=== PATIENT | male | born 1955 | race Caucasian/White ===

== ENCOUNTER 2018-01-05 14:24 | Inpatient (IN) | payer BC, OTHER ==
[~2018-01-05] VITALS: Ht 175.3 cm; Wt 74.8 kg
[~2018-01-05 14:24] MED LIST: CHOLESTEROL MED; PERCOCET 5-3251 EACH PO; TOPROL
[2018-01-05 14:26] VITALS: BP 182/75
[2018-01-05] MEDS ORDERED: CRESTOR10 MG PO (14:31)
[2018-01-05] MEDS ORDERED: NORVASC5 MG PO (14:32)
[2018-01-05] MEDS ORDERED: PRINIVIL20 MG PO (14:32)
[2018-01-05] MEDS ORDERED: ASPIRIN325 PO (14:33)
[2018-01-05] MEDS ORDERED: DOXYCYCLINE 10100 MG PO (14:33)
[2018-01-05] MEDS ORDERED: PROAIR INH (14:34)
[2018-01-05 15:01] LABS: ABSOLUTE BASOPHILS 0.1 thou/uL (0.0-0.2); ABSOLUTE EOSINOPHILS 0.2 thou/uL (0.0-0.7); ABSOLUTE LYMPHOCYTES 2.6 thou/uL (0.8-5.3); ABSOLUTE MONOCYTES 0.9 thou/uL (0.0-1.2); ABSOLUTE NEUTROPHILS 4.7 thou/uL (1.6-8.1); BASOPHILS 1.1 %; EOSINOPHILS 2.1 %; HEMATOCRIT 42.9 % (42.0-52.0); HEMOGLOBIN 14.6 gm/dL (14.0-18.0); MCH 30.5 pg (26.0-34.0); MCHC 33.9 g/dL (28.0-37.0); MCV 89.9 fL (80.0-100.0); MONOCYTES 10.9 %; MPV 6.6 fl. (7.2-11.1); NUCLEATED RBCS 0 /100WBC; PLATELET COUNT* 376 thou/uL (150-400); POLYS 54.9 %; RBC 4.78 mil/uL (4.50-6.00); RDW-CV 14.3 % (10.5-14.5); WBC 8.5 thou/uL (4.0-11.0)
[2018-01-05 15:29] LABS: ANION GAP 8 mmol/L (7-16); BUN 16 mg/dL (7-18); CALCIUM 9.8 mg/dL (8.5-10.1); CHLORIDE 102 mmol/L (98-107); CO2 26 mmol/L (21-32); CREATININE 0.7 mg/dL (0.6-1.3); GLUCOSE 107 mg/dL (70-99); POTASSIUM 4.1 mmol/L (3.5-5.1); SODIUM 136 mmol/L (136-145)
[2018-01-05 15:34] LABS: ALBUMIN 3.7 g/dL (3.4-5.0); ALKALINE PHOSPHATASE 140 U/L (46-116); LIPASE 77 U/L (73-393); NT-PRO BRAIN NAT PEPTIDE 19 pg/mL (<300); SGOT 11 U/L (15-37); SGPT 20 U/L (30-65); TOTAL BILIRUBIN 0.3 mg/dL (<0.1-1.0); TOTAL PROTEIN 7.5 g/dL (6.4-8.2); TROPONIN-I LEVEL <0.06 ng/mL (<0.06)
--- NOTE | 2018-01-05 16:44 | EKG ---
[place] [address] ELECTROCARDIOGRAM REPORT Name: KATRIN COUGHLIN Room: [facility]#: [id number] Admission: 01/05/18 Attend Phys: Discharge: Date of : 55 Report #: [id number] THIS REPORT FOR: //name// [facility] ED Test Date: 2018-01-05 Test Time: 14:28:29 Pat Name: KATRIN COUGHLIN Department: Room: Gender: M Cardiology Technician: JOSE : 1955 Requested By: Anshul Castano Order Number: [id number] MD: Jayedn Ortiz Measurements Intervals [place] Rate: 79 P: 72 UT: 162 QRS: 40 QRSD: 89 T: 62 QT: 359 QTc: 412 Interpretive Statements Sinus rhythm Left atrial enlargement Probable anteroseptal infarct, old Minimal ST depression, inferior leads Baseline wander in lead(s) I,III,aVL No previous ECG available for comparison Electronically Signed On 01-05-2018 16:43:39 GATE KEEPER by Jayden Ortiz [email or web address] <ELECTRONICALLY SIGNED> By: Jayden Ortiz MD, [facility] 01/05/18 1643 1428 1428 Jayden Ortiz MD, [facility] /EPI
[2018-01-05] MEDS ORDERED: LEVAQUIN 750 M750 MG PO (16:58)
[2018-01-05 18:19] VITALS: BP 172/62
[2018-01-05 18:53] VITALS: BP 161/70
[2018-01-05 20:00] VITALS: BP 161/69
[2018-01-06] VITALS: BP 124/66
[2018-01-06 04:00] VITALS: BP 127/62
[2018-01-06 07:45] VITALS: BP 135/71
[2018-01-06 11:30] VITALS: BP 126/62
--- NOTE | 2018-01-06 13:45 | EKG ---
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 : 1955 Requested By: Anshul Castano Order Number: [id number] MD: Jayden Ortiz Measurements Intervals [place] Rate: 61 P: 70 VT: 167 QRS: 36 QRSD: 97 T: 52 QT: 408 QTc: 411 Interpretive Statements Sinus rhythm Probable left atrial enlargement Anterior infarct, old Compared to ECG 01/05/2018 14:28:29 Myocardial infarct finding still present Electronically Signed On 01-06-2018 13:45:42 DIRECTOR PHYSICAL THERAPY by Jayden Ortiz [email or web address] <ELECTRONICALLY SIGNED> By: Jayden Ortiz MD, [facility] 01/06/18 1345 1718 1718 Jayden Ortiz MD, [facility] /EPI
[2018-01-06 15:50] VITALS: BP 124/64
[2018-01-06 20:00] VITALS: BP 141/66; BP 142/56
[2018-01-07 04:00] VITALS: BP 128/77
[2018-01-07 05:58] LABS: ABSOLUTE LYMPHOCYTES 0.8 thou/uL (0.8-5.3); ABSOLUTE MONOCYTES 0.2 thou/uL (0.0-1.2); ABSOLUTE NEUTROPHILS 5.2 thou/uL (1.6-8.1); BASOPHILS 0.3 %; EOSINOPHILS 0.1 %; HEMATOCRIT 44.2 % (42.0-52.0); HEMOGLOBIN 14.9 gm/dL (14.0-18.0); LYMPHOCYTES 13.5 %; MCH 30.3 pg (26.0-34.0); MCHC 33.6 g/dL (28.0-37.0); MCV 90.1 fL (80.0-100.0); MONOCYTES 2.8 %; MPV 6.9 fl. (7.2-11.1); NUCLEATED RBCS 0 /100WBC; PLATELET COUNT* 392 thou/uL (150-400); POLYS 83.3 %; RBC 4.91 mil/uL (4.50-6.00); RDW-CV 13.9 % (10.5-14.5); WBC 6.2 thou/uL (4.0-11.0)
[2018-01-07 06:20] LABS: CALCIUM 10.1 mg/dL (8.5-10.1); CREATININE 0.9 mg/dL (0.6-1.3); MAGNESIUM 2.3 mg/dL (1.8-2.4); POTASSIUM 4.7 mmol/L (3.5-5.1)
[2018-01-07 08:00] VITALS: BP 146/71
--- NOTE | 2018-01-07 08:22 | CON ---
[address] [address] CONSULTATION Name: KATRIN COUGHLIN Room: [address] IN .R.#: [id number] Admission: 01/05/18 Attend Phys: Shiva Ryan Discharge: Date of : 55 Report #: [id number] THIS REPORT FOR: //name// CC: Nick Coon INDICATION: Chest pain in patient with pneumonia and possible lung mass. HISTORY OF PRESENT ILLNESS: The patient is a very pleasant 62-year-old gentleman who denies any history of myocardial infarction. He has carotid vascular disease that is nonocclusive. He has risk factors including tobacco use and dyslipidemia. He presented to the hospital with chest discomfort and was found to have pneumonia that appears to be a postobstructive pneumonia. He is not having fevers. He does have a cough that is nonproductive at this point in time. He has some chest discomfort with cough that is atypical for angina. EKG shows no significant ST or T-wave abnormality. Troponins are unremarkable. PAST MEDICAL HISTORY: 1. Pneumonia. 2. Hyperlipidemia. 3. Hypertension. 4. Chronic tobacco use. PAST SURGICAL HISTORY: None. FAMILY HISTORY: Noncontributory. SOCIAL HISTORY: The patient is . He smokes a pack and half cigarettes daily. ALLERGIES: None. CURRENT MEDICATIONS: Amlodipine 5 mg daily, aspirin 325 mg daily, lisinopril 40 mg daily, Crestor 10 mg at bedtime, ProAir inhaler p.r.n. REVIEW OF SYSTEMS: A 14-point review of systems is positive for cough, pneumonia, chest discomfort, dyspnea, seasonal allergies and dentures, otherwise unremarkable. PHYSICAL EXAMINATION: VITAL SIGNS: Blood pressure 126/62, pulse 63 and regular. GENERAL: This is a pleasant gentleman who is in no distress. Mood and affect appropriate. HEENT: Extraocular muscles intact. Mucous membranes are moist. NECK: Shows no jugular venous distention. There are [place] [address] CONSULTATION Name: KATRIN COUGHLIN Room: [address]#: [id number] Admission: 01/05/18 Attend Phys: Shiva Ryan Discharge: Date of : 55 Report #: [id number] CHEST: Reveals diminished breath sounds with prolonged expiration. I do not appreciate wheezes. CARDIOVASCULAR: Reveals a regular rhythm, soft grade 1/6 systolic ejection murmur. ABDOMEN: Reveals normal bowel sounds. The abdomen is soft, nontender. EXTREMITIES: Shows no edema. SKIN: Warm and dry. A 12-lead EKG shows sinus rhythm with no significant ST or T-wave abnormalities. LABORATORY DATA: Reviewed. CBC is within normal limits. Metabolic profile is fairly unremarkable. Chest x-ray shows right lower lobe infiltrate consistent with pneumonia. CT scan shows a consolidating mass and/or infiltrate in the medial right middle lobe with narrowing of the right middle lobe pulmonary artery and narrowing of the bronchus concerning for malignancy. IMPRESSION AND RECOMMENDATIONS: 1. Atypical chest pain, doubt cardiac in nature. We will obtain noninvasive stress testing at this time. 2. Pneumonia with possible malignancy. The patient will be cleared for bronchoscopy pending results of stress test. Continue IV antibiotics per primary physician and business continuity director. 3. Chronic tobacco use, cessation advised. 4. Hyperlipidemia. The patient is on Crestor, continue 10 mg. 5. Carotid vascular disease, nonocclusive. No symptoms to suggest transient ischemic attack or stroke. Continue daily aspirin. <ELECTRONICALLY SIGNED> By: Shan Tavarez MD, FACC 01/07/18 0822 1551 1615Micshaina Tavarez MD, FACC /nt
[2018-01-07 09:26] LABS: PROTIME 10.1 Seconds (9.20-11.50)
--- NOTE | 2018-01-07 11:14 | CON ---
[address] [address] CONSULTATION Name: KATRIN COUGHLIN Room: [address] IN M.R.#: [id number] Admission: 01/05/18 Attend Phys: Shiva Ryan Discharge: Date of : 55 Report #: [id number] THIS REPORT FOR: //name// CC: Aramis Luna DATE OF SERVICE: 01/06/2018 Consult has been requested by the hospitalist service. HISTORY OF PRESENT ILLNESS: This is a 62-year-old gentleman with past medical history as mentioned below. He has an extensive history of smoking. He has not previously been diagnosed with COPD. The patient now states that he has been sick for the last 2 weeks. He describes that he is having a cold. When asked directly, he states that he lost his and he interprets this as a cold. He also says that he has had shortness of breath over the last 2 weeks. Note that he does not have any previous history of significant shortness of breath. He says he has been coughing, not much sputum coming up. The patient has also had chest pain towards the right side of his chest anteriorly. He says initially it was up to 8/10. He says that sometimes this is associated with respirations and coughing and other times there is no definite tenderness present. He just describes the chest pain as being heaviness. With these complaints, the patient went to an urgent care where he was treated with doxycycline. His symptoms, however, failed to improve and therefore he eventually came to this hospital. Since admission, he says that he still is having chest pain; however, this has improved to around 6/10. He does still remain short of breath. He does not have much sputum production. There is no sore throat or runny nose. There is no swelling of lower extremities or calf pain. He answers to the negative for 12 questions for review of systems except as mentioned above. PAST MEDICAL HISTORY: Hypertension, hyperlipidemia. SOCIAL HISTORY: There is an extensive history of smoking 1-1/2 packs a day times up to 2 packs a day for several decades, still smokes. There is no known history of heavy alcohol use or illegal drug use. CURRENT MEDICATIONS: List in [employer] reviewed. HOME MEDICATIONS: List in [employer] reviewed. Also, see discussion above regarding home medications. ALLERGIES: [place] [address] CONSULTATION Name: KATRIN COUGHLIN Samra Room: [address]#: [id number] Admission: 01/05/18 Attend Phys: Shiva Ryan Discharge: Date of : 55 Report #: [id number] FAMILY HISTORY: There is no pertinent family history. PHYSICAL EXAMINATION: GENERAL: He is alert, awake and oriented. VITAL SIGNS: Has a pulse of 63 and a blood pressure of 126/62, he is saturating 100%. He is on room air. His respiratory rate is 18-20. His temperature is minimally elevated to 37.1. HEENT: Head is normocephalic and atraumatic. Pupils are equal and reactive. There is no throat erythema. NECK: Does not show raised JVP, asymmetry, mass or lymph nodes. CHEST: Symmetrical expansion on inspection and palpation. On auscultation, breath sounds are equal, decreased, expirations are prolonged. I do not hear any added sounds. HEART: Regular. There is no murmur. ABDOMEN: Soft and nontender. EXTREMITIES: Lower extremities show no edema, no calf tenderness. Exam in both his axilla, there are no enlarged lymph nodes palpated. NEUROLOGICAL: Moves all extremities, bilaterally equally and spontaneously with no focal deficit identified. LABORATORY DATA: The patient's CT chest films as well as report are reviewed. There is an infiltrate noted in the right middle lobe region. There is a mass-like opacity in the right middle lobe also noted. There is a suspicion of a malignancy. There are subcentimeter lung nodules elsewhere noted as well. The patient's CBC as well as chemistries are [facility] and these are reviewed. D-dimer was elevated. CT chest, however, does not show any pulmonary emboli. ASSESSMENT AND PLAN: 1. Right middle lobe pulmonary infiltrate/lung mass. The patient does have an infiltrate in the right middle lobe region. I have a suspicion of superimposed malignancy as well, although it will be entirely possible that the entire opacity is secondary to infiltrate alone. The patient states that he would like to get bronchoscopy tomorrow and then leave; however, as described below, I do feel that he has a component of bronchospasm. Also, we will want to have cardiac clearance before bronchoscopy is performed. Therefore, I told him that I am not certain if bronchoscopy tomorrow will be possible. Potentially, it could be considered if his bronchospasm does improve and Cardiology is also able to evaluate it with short notice. Otherwise, I do not feel that bronchoscopy is urgent. Meanwhile, I will continue with broad-spectrum antibiotics, in fact increase the Zithromax dose to 500 mg daily. For now, continue with cefepime; however, it potentially could be switched over to ceftriaxone in the near future. 2. Chronic obstructive pulmonary disease exacerbation. As mentioned above, I do feel that he has a significant component of bronchospasm. It is high risk to perform a bronchoscopy if the patient is bronchospastic. I would therefore treat her with Solu-Medrol overnight and we [place] [address] CONSULTATION Name: KATRIN COUGHLIN Samra Room: [address] IN [facility].#: [id number] Admission: 01/05/18 Attend Phys: Shiva Ryan Discharge: Date of : 55 Report #: [id number] bronchodilators and plan reevaluation tomorrow morning. 3. Chest pain. Troponins are negative. By description, this appears to be atypical. Suspicion of an old infarct on the EKG, however, is noted. I requested Cardiology to evaluate. My suspicion of cardiac etiology of chest pain is low. 4. Active smoker. Thanks for this consultation. <ELECTRONICALLY SIGNED> By: Winter Arellano MD 01/07/18 1114 1452 0420Nick Camara MD /nt
[2018-01-07 11:54] VITALS: BP 117/52
[2018-01-07 13:01] VITALS: BP 117/52
[2018-01-07] MEDS ORDERED: LEVAQUIN 750 M750 MG PO (13:12)
[2018-01-07] MEDS ORDERED: AZITHROMYCIN 2250 MG PO (13:13)
[2018-01-07] MEDS ORDERED: PREDNISONE 10 M10 MG PO (13:14)
[2018-01-07] MEDS ORDERED: VENTOLIN HFA 1818 GM INH (13:15)
[2018-01-07 15:36] VITALS: BP 151/57
--- NOTE | 2018-01-07 17:20 | EXE ---
[place] [address] STRESS ECHOCARDIOGRAM Name: KATRIN COUGHLIN Room: [address]#: [id number] Admission: 01/05/18 Attend Phys: Lino Luna Discharge: Date of : 55 Date of Service: 01/07/18 1719 Report #: [id number] THIS REPORT FOR: //name// APPROVED REPORT Study performed: 01/07/2018 13:20:50 Exam: Dobutamine Stress Echo Indication: Chest pain , Hypertension, Hyperlipidemia Stress Nurse: Briana Ferris RN Supervising Physician: Jayden Ortiz MD Ht: 5 ft 9 in HR: 88 bpm BP: 134/66 mmHg Medical History Medications: Amlodipine, Lisinopril, Crestor, ASA Cardiac Risk Factors: Hyperlipidemia, HTN, Smoking Procedure The patient underwent a Pharmacological Stress Test using Dobutamine. Blood pressure, heart rate, and EKG were monitored. An Echocardiogram was performed by fishing tool technician oil well in four stages in quad fashion. At peak stress, four selected images were obtained and placed side by side with resting images for comparison. Stress Test Details Stress Test: Pharmacological Stress Test using Dobutamine. Reason for pharmacologic stress test: physical limitation. HR Resting HR: 88 bpm Max Heart Rate (APMHR): 158 bpm Max HR Achieved: 152 bpm Target HR (85% APMHR): 134 bpm % of APMHR: 96 Recovery HR: 102 bpm HR response to stress: Normal HR response to stress BP Resting BP: 134/66 mmHg Max BP: 120/49 mmHg Recovery BP: 134/65 mmHg ECG Resting ECG: Sinus Rhythm Stress ECG: Sinus Tachycardia ST Change: [place] [address] STRESS ECHOCARDIOGRAM Name: KATRIN COUGHLIN Room: [address]#: [id number] Admission: 01/05/18 Attend Phys: Lino Luna Discharge: Date of : 55 Date of Service: 01/07/18 1719 Report #: [id number] Maximum ST Deviation: 1.5 mm Arrhythmia: None Recovery ECG: Sinus Rhythm Recovery ST Change: Upsloping ST depression Recovery ST Deviation: 1.5 mm Recovery Arrhythmia: None Clinical Reason for Termination: Completed protocol Exercise duration: 14 min 20 sec Exercise capacity: 1 METs Exercised on the standard Jerome protocol for 14 minutes and 20 seconds exhibiting excellent exercise tolerance. Stress ECG Conclusion The baseline EKG show sinus rhythm with very subtle ST segment depression. With exercise EKG showed sinus tachycardia with upsloping ST segment depression that persisted. There were no stress-induced arrhythmias. Pre-Stress Echo The resting Echocardiogram showed normal left ventricular contractility with an estimated Ejection Fraction of about 55-60%. Post-Stress Echo The stress Echocardiogram showed normal left ventricular contractility with an estimated Ejection Fraction of about >70%. Conclusion Clinical Response: Non-ischemic Exercise Capacity: Superior Stress ECG Response: Equivocal Stress Echo Images: Non-ischemic Stress echocardiographic images show normal augmentation of left ventricular systolic function with exercise stress. There were no wall motion abnormalities. The patient excellent exercise tolerance. ST segment depression noted on the stress EKGs is likely a false positive echocardiographic findings. This is a low risk study. Other Information Study Quality: Good <Conclusion> Stress echocardiographic images show normal augmentation of left ventricular systolic function with exercise stress. There were no wall motion abnormalities. The patient excellent [place] [address] STRESS ECHOCARDIOGRAM Name: KATRIN COUGHLIN Room: [address]#: [id number] Admission: 01/05/18 Attend Phys: Lino Luna Discharge: Date of : 55 Date of Service: 01/07/181718 Report #: [id number] ST segment depression noted on the stress EKGs is likely a false positive echocardiographic findings. This is a low risk study. <ELECTRONICALLY SIGNED> By: Shan Tavarez MD, [facility] 01/07/181718 18 1719 Shan Tavarez MD, FACC /INF
== END 2018-01-07 17:53 | disposition home or self-care (01) | DRG 178 ==
LOC: M.ERS 14:24 → M.2W 17:56 → M.TBA-ER 17:56 → M.2W 18:41
PROVIDERS: Emergency Medicine Emergency Medical Services; Internal Medicine; Internal Medicine Critical Care Medicine; ADMIT Internal Medicine
DX: J15.6 Pneumonia due to other Gram-negative bacteria (principal); J44.1 Chronic obstructive pulmonary disease with (acute) exacerbation; J44.0 Chronic obstructive pulmonary disease with (acute) lower respiratory infection; I10 Essential (primary) hypertension; E78.00 Pure hypercholesterolemia, unspecified; F17.210 Nicotine dependence, cigarettes, uncomplicated; E78.5 Hyperlipidemia, unspecified; I77.9 Disorder of arteries and arterioles, unspecified; Z66 Do not resuscitate; Z23 Encounter for immunization; Z79.899 Other long term (current) drug therapy; Z80.42 Family history of malignant neoplasm of prostate